=== PATIENT | female | born 1955 ===

== ENCOUNTER 2018-10-06 18:36 | Emergency (ER) | payer OTHER ==
[~2018-10-06] VITALS: Ht 160 cm; Wt 68.1 kg
--- NOTE | 2018-10-06 18:50 | NUR ---
C/O ALLERGIC REACTION AFTER TAKING AZITHROMYCIN 1 HOUR AGO. PT AAOX4, VSS. HIVES ON FACE. DENIES SOB, CP, DIZZINESS, N/V AT THIS TIME. AWAITING EVAL BY CHAR/PA. WILL CONT TO MONITOR.
[2018-10-06] MEDS ORDERED: diphenhydrAMINE HCL 50 MG/ML VIAL IV ONE (19:30)
[2018-10-06] MEDS ORDERED: diphenhydrAMINE HCL 50 MG/ML VIAL ONE ×3 (19:46→21:26)
[2018-10-06] MEDS ORDERED: methylPREDNISolone SOD SUCC 125 MG/2ML VIAL ONE (19:46)
[2018-10-06] MEDS ORDERED: FAMOTIDINE/PF INJ 20 MG/2 ML VIAL IV ONE (19:47)
[2018-10-06] MEDS: IV NS 0.9% 1,000 ML BAG IV ONE (19:55)
[2018-10-06] MEDS: methylPREDNISolone SOD SUCC 125 MG/2ML VIAL IV ONE (19:55)
[2018-10-06] MEDS: FAMOTIDINE/PF INJ 20 MG/2 ML VIAL IV ONE (19:56)
--- NOTE | 2018-10-06 19:58 | NUR ---
MEDICATED FOR ALLERGIC RXN, PT DELMA WELL.
[2018-10-06] MEDS: diphenhydrAMINE HCL 50 MG/ML VIAL IV ONE ×2 (20:13→21:30)
--- NOTE | 2018-10-06 21:45 | NUR ---
Patient discharged to home in stable condition. Written and verbal after care instructions given. Patient verbalizes understanding of instruction. IV removed. Catheter intact and site benign. Pressure and 4x4 applied to site. No bleeding noted.
[2018-10-06 21:55] VITALS: BP 118/64
== END 2018-10-06 21:56 | disposition home or self-care (01) ==
LOC: ER 18:36
DX: T36.3X5A Adverse effect of macrolides, initial encounter (principal); Z88.1 Allergy status to other antibiotic agents; Z60.2 Problems related to living alone; Y92.89 Other specified places as the place of occurrence of the external cause
CPT/HCPCS: 96374; 96375; 96376; 99283; J1200 ×2; J2930; J3490; J7030